=== PATIENT | female | born 1965 | race Two or more races ===

== ENCOUNTER 2017-05-03 07:21 | Outpatient (CLI) | payer OTHER | END 2017-05-03 08:00 | disposition home or self-care (01) | LOC: NUCLEAR 07:21 | DX: M06.9 Rheumatoid arthritis, unspecified (principal); M54.5 Low back pain; M06.00 Rheumatoid arthritis without rheumatoid factor, unspecified site | CPT/HCPCS: 78315; 78306; A9503 ==

== ENCOUNTER 2019-03-20 16:24 | Emergency (ER) | payer OTHER ==
[~2019-03-20] VITALS: Ht 165.1 cm; Wt 72.6 kg
[2019-03-21] MEDS ORDERED: BACTRIM DS TAB1 EACH PO (02:35)
[2019-03-21] MEDS ORDERED: ULTRACET PO (02:35)
== END 2019-03-21 02:41 | disposition home or self-care (01) ==
LOC: ER 16:24
DX: R10.32 Left lower quadrant pain (principal)

== ENCOUNTER 2020-06-05 13:23 | Outpatient (CLI) | payer OTHER ==
[~2020-06-05 13:23] MED LIST: BACTRIM DS TAB1 EACH PO; ULTRACET PO
== END 2020-06-05 13:41 | disposition home or self-care (01) ==
LOC: RAD 13:23
DX: M51.06 Intervertebral disc disorders with myelopathy, lumbar region (principal)

== ENCOUNTER 2020-11-19 13:14 | Outpatient (CLI) | payer OTHER | END 2020-11-19 13:28 | disposition home or self-care (01) | LOC: RAD 13:14 → MAMO-SONO 13:45 | PROVIDERS: ATTEND Internal Medicine | DX: N64.4 Mastodynia (principal); M05.00 Felty's syndrome, unspecified site; Z13.29 Encounter for screening for other suspected endocrine disorder; Z12.31 Encounter for screening mammogram for malignant neoplasm of breast; Z12.11 Encounter for screening for malignant neoplasm of colon; I11.9 Hypertensive heart disease without heart failure; E78.1 Pure hyperglyceridemia; E55.9 Vitamin D deficiency, unspecified ==

== ENCOUNTER 2022-03-10 10:32 | Outpatient (CLI) | payer OTHER | END 2022-03-10 10:44 | disposition home or self-care (01) | LOC: RAD 10:32 | DX: R05.9 Cough, unspecified (principal) ==

== ENCOUNTER → 2022-03-30 07:29 | Outpatient (CLI) | payer OTHER | END | disposition home or self-care (01) | LOC: NUCLEAR 07:29 | DX: M13.0 Polyarthritis, unspecified (principal); M08.3 Juvenile rheumatoid polyarthritis (seronegative); M06.9 Rheumatoid arthritis, unspecified | CPT/HCPCS: 78315; A9503 ==

== ENCOUNTER 2022-04-27 07:53 | Outpatient (CLI) | payer OTHER | END 2022-04-27 08:15 | disposition home or self-care (01) | LOC: MAMO-SONO 07:53 | PROVIDERS: ATTEND Internal Medicine | DX: Z12.31 Encounter for screening mammogram for malignant neoplasm of breast (principal); N64.4 Mastodynia; I11.9 Hypertensive heart disease without heart failure; R10.10 Upper abdominal pain, unspecified ==

== ENCOUNTER 2022-06-02 12:10 | Outpatient (CLI) | payer OTHER | END 2022-06-02 12:12 | disposition home or self-care (01) | LOC: NUCLEAR 12:10 | PROVIDERS: ATTEND Internal Medicine | DX: M81.0 Age-related osteoporosis without current pathological fracture (principal) ==

== ENCOUNTER → 2024-06-19 10:25 | Outpatient (CLI) | payer OTHER | END | disposition home or self-care (01) | LOC: NUCLEAR 10:25 | DX: I73.9 Peripheral vascular disease, unspecified (principal); I87.2 Venous insufficiency (chronic) (peripheral) ==

== ENCOUNTER 2024-06-19 12:36 | Outpatient (CLI) | payer OTHER | END 2024-06-19 12:49 | disposition home or self-care (01) | LOC: NUCLEAR 12:36 | DX: M81.0 Age-related osteoporosis without current pathological fracture (principal) ==

== ENCOUNTER 2024-06-19 13:36 | Outpatient (CLI) | payer OTHER | END 2024-06-19 13:38 | disposition home or self-care (01) | LOC: RAD 13:36 | DX: I70.0 Atherosclerosis of aorta (principal) ==

== ENCOUNTER → 2024-08-07 | Outpatient (CLI) | payer OTHER | END | disposition home or self-care (01) | LOC: RAD 08:18 | DX: M05.9 Rheumatoid arthritis with rheumatoid factor, unspecified (principal) ==